=== PATIENT | female | born 1995 | race Caucasian/White ===

== ENCOUNTER 2016-09-25 14:27 | Emergency (ER) | payer MEDICAID ==
[~2016-09-25] VITALS: Ht 160 cm; Wt 53.3 kg
[~2016-09-25 14:27] MED LIST: ALBU8.5H5 INH; BUPR100T11 PO; MIRT15TA3 PO
[2016-09-25] MEDS ORDERED: SODIUM CHLORIDE 0.9% 1,000 ML IV ONE (15:24)
[2016-09-25] MEDS ORDERED: METOCLOPRAMIDE 5 MG/ML, 2ML IVPush ONE (15:30)
[2016-09-25] MEDS ORDERED: SODIUM CHLORIDE 0.9% 1,000ML IVBOLUS ONE (15:30)
[2016-09-25] MEDS ORDERED: DIPHENHYDRAMINE 50 MG/ML, 1ML IVPush ONE (15:30)
[2016-09-25] MEDS ORDERED: SODIUM CHLORIDE FLUSH 10ML SYR IVF ONE (15:30)
[2016-09-25] MEDS ORDERED: HYDROmorphone 1 MG/ML, 1ML IM ONE (16:00)
[2016-09-25] MEDS ORDERED: ONDANSETRON ODT 4 MG PO ONE (16:00)
[2016-09-25] MEDS ORDERED: HYDROmorphone 1 MG/ML, 1ML ONE (16:24)
[2016-09-25] MEDS ORDERED: ONDANSETRON ODT 4 MG ONE (16:25)
[2016-09-25 17:08] VITALS: BP 103/65
== END 2016-09-25 17:14 | disposition home or self-care (01) ==
LOC: ED 16:09
DX: R51 Headache (principal); N30.90 Cystitis, unspecified without hematuria
CPT/HCPCS: 70450; 81001; 87077; 87086; 87186; 96372; 99285; J1170; Q0162

== ENCOUNTER 2017-01-07 05:10 | Emergency (ER) | payer MEDICAID ==
[~2017-01-07] VITALS: Ht 160 cm; Wt 53.1 kg
[2017-01-07 05:14] VITALS: BP 116/79
== END 2017-01-07 05:45 | disposition left against medical advice (07) ==
LOC: ED 05:40
DX: O20.9 Hemorrhage in early pregnancy, unspecified (principal); Z53.21 Procedure and treatment not carried out due to patient leaving prior to being seen by health care provider

== ENCOUNTER 2017-04-28 01:22 | Emergency (ER) | payer MEDICAID ==
[~2017-04-28] VITALS: Ht 160 cm; Wt 53.9 kg
[2017-04-28 01:23] VITALS: BP 158/97
== END 2017-04-28 02:18 | disposition home or self-care (01) ==
LOC: ED 02:00
DX: K08.89 Other specified disorders of teeth and supporting structures (principal); F17.210 Nicotine dependence, cigarettes, uncomplicated
CPT/HCPCS: 99283

== ENCOUNTER 2018-03-29 17:27 | Emergency (ER) | payer MEDICAID, OTHER ==
[~2018-03-29] VITALS: Ht 160 cm; Wt 61.7 kg
[2018-03-29 17:54] LABS: BASOPHILS # (AUTO) 0.03 x10^3/uL (0-0.1); BASOPHILS % (AUTO) 0 % (0-1); EOSINOPHILS % (AUTO) 4 % (1-7); LYMPHOCYTES % (AUTO) 29 % (22-44); MD NO; MEAN CORPUSCULAR VOLUME 88.4 fL (80-100); MONOCYTES # (AUTO) 0.44 x10^3/uL (0.2-0.8); MONOCYTES % (AUTO) 6 % (2-9); NEUTROPHILS # (AUTO) 4.04 x10^3/uL (1.8-6.8); NEUTROPHILS % (AUTO) 59 % (42-75); PLATELET COUNT 230 x10^3/uL (130-400); RED CELL DISTRIBUTION WIDTH 12.6 % (9.6-15.2)
[2018-03-29] MEDS ORDERED: ONDANSETRON ODT 4 MG PO ONE (18:00)
[2018-03-29 18:09] LABS: ALBUMIN 3.9 g/dL (3.4-5.0); ANION GAP 6 mmol/L (5-15); CALCIUM 8.8 mg/dL (8.5-10.1); CHLORIDE 110 mmol/L (98-107)
[2018-03-29 18:15] LABS: ALANINE AMINOTRANSFERASE 18 U/L (12-78); ALKALINE PHOSPHATASE 70 U/L (45-117); BILIRUBIN,TOTAL 0.3 mg/dL (0.2-1.0); CREATININE 0.79 mg/dL (0.55-1.02); TOTAL PROTEIN 7.8 g/dL (6.4-8.2)
[2018-03-29 19:34] VITALS: BP 113/79
--- NOTE | 2018-03-29 19:36 | NUR ---
PT BACK TO ROOM AT THIS TIME W/ STEADY GAIT. ATTEMPTING UA AT THIS TIME. PT PRESENTS TO ED C/O COUGHx3 DAYS AND VOMITINGx1 DAY. STATES EMESIS THIS AM, WITH NO FURTHER EPISODES TODAY. STATES ABLE TO TOLERATE PO INTAKE W/ A LEMONADE HALF DRANK ON COUNTER. STATES ABD PAIN THIS AM THAT HAS SINCE SUBSIDED. DENIES ANY FURTHER GI/ SYMPTOMS. MONITORING APPLIED. VSS. CALL LIGHT WITHIN REACH. AWAITING UA.
[2018-03-29] MEDS ORDERED: ONDANSETRON ODT 4 MG ONE (19:40)
--- NOTE | 2018-03-29 19:47 | NUR ---
UA SENT DOWN. UA AT BEDSIDE. Addendum: 03/29/18 at 1948 by JOHANNE UA SENT DOWN. CXR AT BEDSIDE.
--- NOTE | 2018-03-29 19:50 | NUR ---
PT ASKING FOR "SOMETHING TO SNACK ON WHILE I WAIT." PT EDUCATED ON WAITING FOR RESULTS ON ALL TESTING BEFORE FOOD. STATES FEELING BETTER AND AWAITING CXR AND UA.
[2018-03-29 19:52] LABS: MICROSCOPIC INDICATED
[2018-03-29 20:07] LABS: CULTURE INDICATED? NO
== END 2018-03-29 20:49 | disposition home or self-care (01) ==
LOC: ED 19:44
DX: J04.0 Acute laryngitis (principal); R11.2 Nausea with vomiting, unspecified
CPT/HCPCS: 36415; 71045; 80053; 81001; 83690; 84703; 85025; 99284; J7512; Q0162

== ENCOUNTER 2018-12-19 05:36 | Emergency (ER) | payer MEDICAID ==
[~2018-12-19] VITALS: Ht 160 cm; Wt 61.7 kg
[2018-12-19 05:51] VITALS: BP 133/92
--- NOTE | 2018-12-19 05:52 | NUR ---
pt returned from [facility] in room drawing labs now.
[2018-12-19] MEDS ORDERED: DEXAMETHASONE 4 MG/ML, 1ML ONE (05:58)
[2018-12-19] MEDS ORDERED: DEXAMETHASONE 4 MG/ML, 1ML PO ONE (06:00)
[2018-12-19 06:28] LABS: RAPID INFLUENZA A Negative (Negative); RAPID INFLUENZA B Negative (Negative)
--- NOTE | 2018-12-19 07:29 | NUR ---
Patient given discharge instructions and they have confirmed that they understand the instructions. Patient ambulatory with steady gait.
== END 2018-12-19 07:31 | disposition home or self-care (01) ==
LOC: ED 06:58
DX: J02.8 Acute pharyngitis due to other specified organisms (principal); F41.9 Anxiety disorder, unspecified; F17.200 Nicotine dependence, unspecified, uncomplicated
CPT/HCPCS: 71046; 87081; 87400; 87880; 99284; J1100

== ENCOUNTER 2019-04-20 10:32 | Emergency (ER) | payer MEDICAID ==
[~2019-04-20] VITALS: Ht 160 cm; Wt 61.1 kg
[2019-04-20] MEDS ORDERED: ONDANSETRON 2MG/ML, 2ML ONE ×2 (12:25→13:33)
[2019-04-20] MEDS ORDERED: ONDANSETRON 2MG/ML, 2ML IVPush ONE ×2 (12:30→13:30)
[2019-04-20] MEDS ORDERED: SODIUM CHLORIDE 0.9% 1,000ML IVBOLUS ONE (12:30)
--- NOTE | 2019-04-20 12:41 | NUR ---
PT HAS CO N/V/D ABDOMINAL CRAMPS FROM EATING A [employer] AND [place] AT [employer] [facility]. PT STAES SHE THREW UP ALL NIGHT. PT NOT ACTIVELY VOMITING. IV ESTABLISHED, MEDICATED PER ORDERS, LABS DRAWN
[2019-04-20 12:58] LABS: ANION GAP 9 mmol/L (5-15); CALCIUM 8.7 mg/dL (8.5-10.1); CHLORIDE 107 mmol/L (98-107); CREATININE 0.95 mg/dL (0.55-1.02)
[2019-04-20 13:03] VITALS: BP 96/53
--- NOTE | 2019-04-20 13:27 | NUR ---
Patient/Caregiver given discharge instructions and they have confirmed that they understand the instructions. Patient ambulatory with steady gait.
[2019-04-20] MEDS ORDERED: KETOROLAC 30 MG/1 ML IVPush ONE (13:30)
[2019-04-20] MEDS ORDERED: KETOROLAC 30 MG/1 ML ONE (13:33)
== END 2019-04-20 13:53 | disposition home or self-care (01) ==
LOC: ED 13:45
DX: R10.84 Generalized abdominal pain (principal); R11.2 Nausea with vomiting, unspecified; E86.0 Dehydration; F17.200 Nicotine dependence, unspecified, uncomplicated
CPT/HCPCS: 36415; 80048; 96374; 96375; 96376; 99284; J1885; J2405; J7030